=== PATIENT | female | born 2000 | race Caucasian/White ===

== ENCOUNTER 2021-01-11 16:10 | Emergency (ER) | payer OTHER ==
[~2021-01-11] VITALS: Ht 170.2 cm; Wt 65.8 kg
[2021-01-11] MEDS ORDERED: ZUPLENZ4 MG PO (16:31)
== END 2021-01-11 16:49 | disposition home or self-care (01) ==
LOC: ER 16:23
DX: S06.0X0A Concussion without loss of consciousness, initial encounter (principal); W22.09XA Striking against other stationary object, initial encounter; Y99.0 Civilian activity done for income or pay; I45.6 Pre-excitation syndrome
CPT/HCPCS: 99282